=== PATIENT | female | born 1960 | race Caucasian/White ===

== ENCOUNTER → 2025-02-15 11:12 | Outpatient (CLI) | payer MEDICARE, SELFPAY ==
--- NOTE | 2025-02-15 11:21 | DI.RAD.S_ITS ---
PROCEDURE: XR FINGER RT MIN 2V INDICATIONS: PAIN R FINGERS TECHNIQUE: AP hand, 3 views of the 5th finger(s) acquired. COMPARISON: None. FINDINGS: Bones: No acute fractures or dislocations. Moderate degenerative changes of the trapezial metacarpal joint include joint space narrowing, marginal osteophytosis and subchondral sclerosis. Moderate diffuse interphalangeal joint space narrowing and subchondral sclerosis noted. Additionally, a small cortical fragment dorsally adjacent to the 5th proximal interphalangeal joint may represent sequelae of remote trauma. No suspicious bony lesions. Soft tissues: No suspicious soft tissue calcifications. IMPRESSION: No acute bony abnormality. Small cortical fragment dorsally adjacent to the 5th proximal interphalangeal joint may represent sequelae of remote trauma. Dictated by: Kris Smith M.D. on 02/17/2025 at 0:27 Approved by: Kris Smith M.D. on 02/17/2025 at 0:34
== END ==
LOC: RAD 11:19
PROVIDERS: PCP Family Medicine; Referring Provider Family Medicine; Visit Provider Family Medicine
DX: M79.644 Pain in right finger(s) (principal)
CPT/HCPCS: 73140

== ENCOUNTER → 2025-03-13 | Outpatient (CLI) | payer MEDICARE, SELFPAY ==
--- NOTE | 2025-03-13 16:56 | DI.MG.S_ITS ---
MM screening mammo BI2D: 03/13/2025. BI-RADS: 1 CLINICAL: 65-year old female for bilateral screening mammogram. Tyrer-Cuzick lifetime risk of 9.2%. Current reported family history of breast cancer: sister. PRIOR EXAMS: 02/17/2023, 08/30/2020, 04/05/2018. MAMMOGRAPHY TECHNIQUE: 2D and 3D (tomosynthesis) digital mammographic views obtained, with additional images as needed for full coverage. Current study was also evaluated with a Computer Aided Detection (CAD) system. DENSITY B. There are scattered areas of fibroglandular density. MAMMOGRAPHY FINDINGS Bilateral: No suspicious mass, asymmetry, microcalcification, or other abnormality seen. IMPRESSION: * No evidence of malignancy. RECOMMENDATIONS Bilateral * Annual screening mammography. OVERALL ASSESSMENT CATEGORY BI-RADS-1: Negative. The [employer] recommends annual screening mammography beginning at age 40 for women with average risk of breast cancer. ELECTRONICALLY SIGNED: Remy Wilkes M.D. on 03/14/2025 at 07:16:39 AM PT Interpreting Station ID: [id number]
== END ==
LOC: MAMMO 16:53
PROVIDERS: PCP Family Medicine; Referring Provider Family Medicine; Visit Provider Family Medicine
DX: Z12.31 Encounter for screening mammogram for malignant neoplasm of breast (principal); Z80.3 Family history of malignant neoplasm of breast
CPT/HCPCS: 77063; 77067